=== PATIENT | female | born 1945 | race Caucasian/White ===

== ENCOUNTER → 2018-03-14 | Outpatient (CLI) | payer MEDICARE, OTHER ==
[~2018-03-14] MED LIST: ADULT LOW DOSE81 MG PO; ALBUTEROL INH IH; ANASPAZ0.125 MG SL; ASPIRIN81 M2 PO; AVELOX 400 MG400 MG PO; CALCIUM OYSTER500 MG PO; CLONAZEPAM 0.50.5 M1 PO; CRESTOR10 MG PO; DALIRESP500 MCG PO; DOXYCYCLINE 10100 MG; DUONEB 2.5-0.5 M3 ML; DUONEB 2.5-0.5 M3 ML INH; GLUCOPHAGE500 MG PO; LEVAQUIN 500 M500 M4 PO; LEXAPRO 10 MG T10 MG PO; LISINOPRIL5 MG PO; MUCINEX600 MG PO; NICOTINE TRANSD14 M1 TOP; OMEGA-31000 MG PO; OXYBUTYNIN 5 MG5 M1; PHENERGAN-CODE120 ML; PREDNISONE 10 M10 M1 PO; PREDNISONE 10 M10 MG PO; PREDNISONE 20 M20 M1 PO; PROBIOTIC1 EAC1 PO; PROVENTIL INH; PULMICORT0.5 MG/22 INH; SINGULAIR 10 MG10 M1 PO; SYMBICORT80 MCG/4.1 INH; VITAMIN B-12500 MCG PO; VITAMIN D1000 UNI1 PO; WELCHOL PO; WELLBUTRIN XL300 M1 PO; ZOCOR20 MG PO; [UNRECOGNIZED DRUG - OTHER]
== END ==
LOC: M.ULTRA 10:50
DX: I65.23 Occlusion and stenosis of bilateral carotid arteries (principal); R42 Dizziness and giddiness; I10 Essential (primary) hypertension; E11.8 Type 2 diabetes mellitus with unspecified complications; E11.65 Type 2 diabetes mellitus with hyperglycemia; J43.1 Panlobular emphysema; I25.811 Atherosclerosis of native coronary artery of transplanted heart without angina pectoris

== ENCOUNTER → 2018-10-23 | Outpatient (CLI) | payer MEDICARE, OTHER | LOC: M.RAD 17:33 | DX: E11.9 Type 2 diabetes mellitus without complications (principal); J43.1 Panlobular emphysema ==

== ENCOUNTER 2019-02-26 15:32 | Inpatient (IN) | payer MEDICARE, OTHER ==
[~2019-02-26] VITALS: Ht 157.5 cm; Wt 49.9 kg
--- NOTE | ~2019-02-26 | CON ---
[address] [address] CONSULTATION Name: GENNAVICTOR HUGO K Room: [address] IN M.R.#: [id number] Admission: 02/26/19 Attend Phys: Krista Christianson Discharge: Date of : 49 Report #: [id number] THIS REPORT FOR: //name// CC: Selvin Bull DICTATED BY: Kandis COREY DATE OF SERVICE: 02/27/2019 Please note at the time of this dictation, the patient was seen and physically examined by myself. REASON FOR CONSULTATION: Possible post-polypectomy bleed. HISTORY OF PRESENT ILLNESS: This is a 73-year-old female who presented to the Emergency Room after undergoing a colonoscopy with Dr. Vizcarra on 02/25/2019. She had five polyps removed, two of which were saline-assisted polypectomies at the cecum. The patient, after the procedure, developed some right-sided abdominal discomfort and then prior to arrival to the Emergency Room, she noted passing of several blood clots with two more episodes of a little bit of bleeding. She has had no further episodes of bleeding since she has been here or any further bowel movements. Hemoglobin on admission was 13. The patient is not complaining of any abdominal discomfort at this time. No fever or chills. She is hungry, tolerated her diet and will get her diet started. ALLERGIES: SULFA AND INFLUENZA. MEDICATIONS FROM HOME: Clonazepam, Zestril, vitamin D, Glucophage and Symbicort. PAST MEDICAL HISTORY: She has had COPD, diabetes, hypertension. She has had a history of high-grade celiac stenosis that has been noted as well. PAST SURGICAL HISTORY: Neck surgery, cholecystectomy, hysterectomy, nodules removed from her vocal cords and a and a recent colonoscopy with polyps removed. FAMILY HISTORY: Noncontributory. SOCIAL HISTORY: She does drink alcohol on special occasions. She continues to smoke one pack per day and denies any illegal drug use. REVIEW OF SYSTEMS: Twelve-point review of systems is essentially negative except what is [place] [address] CONSULTATION Name: VICTOR HUGO VAIL Room: [address] IN [facility]#: [id number] Admission: 02/26/19 Attend Phys: Krista Christianson Discharge: Date of : 49 Report #: [id number] PHYSICAL EXAMINATION: VITAL SIGNS: Temperature 36.8, pulse 71, respirations 20, blood pressure 133/50. HEART: Regular rate and rhythm. LUNGS: Clear. ABDOMEN: Soft, positive bowel sounds in all four quadrants with no masses or tenderness noted. LABORATORY DATA: Now, hemoglobin is 11.2. White count on admission was 12.1. She is now down to 8.9, platelets 246. GFR is 62. CT scan at the time of admission showed some inflammatory changes around the cecum and did note some large plaquing at the celiac and SMA and ZAHRAA origins, which has contributed to the patient's history. IMPRESSION: 1. Gastrointestinal bleed, post-polypectomy bleed, stable. 2. Some leukocytosis, it is resolved. 3. Abdominal pain, resolved. PLAN: 1. Advance her diet to a low-residue diet. 2. Check her hemoglobin at 13:00 to ensure stability. 3. Continue antibiotics. 4. If hemoglobin remains stable and no further bleeding is noted, okay from GI for the patient to go home. Thank you for allowing us to participate in this patient's care. Please do not hesitate to call with any questions in regard to this consult. By: [id number] 1850Lorenza Sosa MD /nt
[2019-02-26 15:41] VITALS: BP 145/58
[2019-02-26 16:03] LABS: ABSOLUTE BASOPHILS 0.1 thou/uL (0.0-0.2); ABSOLUTE EOSINOPHILS 0.1 thou/uL (0.0-0.7); ABSOLUTE LYMPHOCYTES 2.4 thou/uL (0.8-5.3); ABSOLUTE MONOCYTES 0.9 thou/uL (0.0-1.2); ABSOLUTE NEUTROPHILS 8.6 thou/uL (1.6-8.1); BASOPHILS 0.6 %; EOSINOPHILS 0.6 %; HEMATOCRIT 38.8 % (37.0-47.0); HEMOGLOBIN 13.1 gm/dL (12.0-15.0); LYMPHOCYTES 20.1 %; MCHC 33.8 g/dL (28.0-37.0); MCV 88.7 fL (80.0-100.0); MONOCYTES 7.6 %; MPV 8.1 fl. (7.2-11.1); NUCLEATED RBCS 0 /100WBC; PLATELET COUNT* 296 thou/uL (150-400); POLYS 71.1 %; RBC 4.37 mil/uL (4.20-5.00); RDW-CV 13.4 % (10.5-14.5); WBC 12.1 thou/uL (4.0-11.0)
[2019-02-26 16:10] LABS: ANION GAP 7 mmol/L (7-16); BUN 9 mg/dL (7-18); CALCIUM 9.8 mg/dL (8.5-10.1); CHLORIDE 100 mmol/L (98-107); CO2 31 mmol/L (21-32); CREATININE 0.9 mg/dL (0.6-1.3); GLUCOSE 121 mg/dL (70-99); POTASSIUM 3.4 mmol/L (3.5-5.1); SODIUM 138 mmol/L (136-145)
[2019-02-26 16:22] LABS: ALBUMIN 3.9 g/dL (3.4-5.0); ALKALINE PHOSPHATASE 77 U/L (46-116); LIPASE 120 U/L (73-393); SGOT 14 U/L (15-37); SGPT 15 U/L (30-65); TOTAL BILIRUBIN 0.6 mg/dL (<0.1-1.0); TOTAL PROTEIN 7.3 g/dL (6.4-8.2); TROPONIN-I LEVEL <0.06 ng/mL (<0.06)
[2019-02-26 20:30] VITALS: BP 122/45
[2019-02-26 21:05] VITALS: BP 133/50
--- NOTE | 2019-02-27 06:20 | NUR ---
PATIENT ARRIVED ON THE FLOOR FROM ER AT ABOUT 2014. PATIENT ADMISSION HISTORY AND ASSESSMENT WAS COMPLETED CHARTED. IV FLUIDS ARE INFUSING PER ORDER. PATIENT HAS HAD NO COMPLAINTS OF PAIN OR ANY MORE BLOODY STOOLS. WILL CONTINUE TO MONITOR.
[2019-02-27 09:07] LABS: ABSOLUTE BASOPHILS 0.1 thou/uL (0.0-0.2); ABSOLUTE EOSINOPHILS 0.2 thou/uL (0.0-0.7); ABSOLUTE LYMPHOCYTES 2.8 thou/uL (0.8-5.3); ABSOLUTE MONOCYTES 0.8 thou/uL (0.0-1.2); ABSOLUTE NEUTROPHILS 4.9 thou/uL (1.6-8.1); BASOPHILS 1.1 %; EOSINOPHILS 2.4 %; HEMATOCRIT 32.9 % (37.0-47.0); HEMOGLOBIN 11.2 gm/dL (12.0-15.0); LYMPHOCYTES 31.9 %; MCH 30.3 pg (26.0-34.0); MCHC 33.9 g/dL (28.0-37.0); MCV 89.4 fL (80.0-100.0); MPV 7.9 fl. (7.2-11.1); NUCLEATED RBCS 0 /100WBC; PLATELET COUNT* 246 thou/uL (150-400); POLYS 55.6 %; RBC 3.68 mil/uL (4.20-5.00); RDW-CV 13.3 % (10.5-14.5); WBC 8.9 thou/uL (4.0-11.0)
--- NOTE | 2019-02-27 11:10 | EKG ---
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
[2019-02-27 11:45] VITALS: BP 115/27; BP 86/45
[2019-02-27 13:55] VITALS: BP 100/25
[2019-02-27 15:32] VITALS: BP 101/29
--- NOTE | 2019-02-27 16:37 | NUR ---
PT.LIVES AT HOME WITH . NO USE OF DME OR HX OF HH. SHE IS INDEPENDENT. HOPES TO DC TOMORROW. NO DISCHARGE NEEDS IDENTIFIED.
[2019-02-27 17:05] VITALS: BP 118/24
[2019-02-27 17:06] VITALS: BP 134/40
--- NOTE | 2019-02-27 17:29 | NUR ---
PATIENT RESTING IN BED. PATIENT IS UP AD PREMA IN ROOM. PATIENT DENIES ANY BOWEL MOVEMENTS TODAY. PATIENT HAS GOOD APPETITE WITH NO COMPLAINTS OF NAUSEA OR PAIN. PATIENT BLOOD PRESSURE IS HYPOTENSIVE, SALINE BOLUS GIVEN ORDERED. PRESSURES HAVE IMPROVED DOCUMENTED. PATIENT DENIES ANY NEEDS AT THIS TIME. CALL LIGHT WITHIN REACH. WILL CONTINUE TO MONITOR.
[2019-02-27 20:45] VITALS: BP 124/47
[2019-02-28 05:09] LABS: HEMATOCRIT 30.5 % (37.0-47.0); HEMOGLOBIN 10.5 gm/dL (12.0-15.0); MCH 31.1 pg (26.0-34.0); MCHC 34.4 g/dL (28.0-37.0); MCV 90.4 fL (80.0-100.0); MPV 8.5 fl. (7.2-11.1); RBC 3.37 mil/uL (4.20-5.00); RDW-CV 13.6 % (10.5-14.5); WBC 8.4 thou/uL (4.0-11.0)
--- NOTE | 2019-02-28 05:13 | NUR ---
PT SLEPT MOST OF SHIFT. ASSESSMENT DOCUMENTED. MEDS GIVEN PER E-MAR. IV PATENT. NO REPORTS OF PAIN OR NAUSEA. PT REPORTS HAVING A BOWEL MOVEMENT WITH NO BLOOD. UNOBSERVED BY THIS NURSE. WILL CONTINUE WITH PLAN OF CARE.
[2019-02-28 05:16] LABS: CALCIUM 8.8 mg/dL (8.5-10.1); CREATININE 0.9 mg/dL (0.6-1.3); MAGNESIUM 1.5 mg/dL (1.8-2.4); POTASSIUM 4.5 mmol/L (3.5-5.1)
[2019-02-28 07:50] VITALS: BP 146/51
[2019-02-28] MEDS ORDERED: CIPRO500 MG PO (08:34)
[2019-02-28] MEDS ORDERED: FLAGYL375 MG PO (08:34)
[2019-02-28 10:18] VITALS: BP 146/51
--- NOTE | 2019-02-28 11:23 | NUR ---
PATIENT SITTING UP IN CHAIR ALL MORNING. UP AD PREMA WITH NO DIFFICULTY. IVF AND SCHED ABX INFUSED ORDERED. PATIENT TO DISCHARGE HOME. VERBALIZES UNDERSTANDING OF PAPERWORK, SCRIPTS CALLED INTO [facility] IN [place]. IV DC'D. PATIENT AMBULATED OUT WITH SPOUSE AND STAFF AND ALL BELONGINGS.
== END 2019-02-28 11:28 | disposition home or self-care (01) | DRG 920 ==
LOC: M.ERS 15:32 → M.ORTHSURG 17:53 → M.TBA-ER 17:53 → M.ORTHSURG 20:20
PROVIDERS: Family Medicine; Internal Medicine; ADMIT Internal Medicine
DX: K91.840 Postprocedural hemorrhage of a digestive system organ or structure following a digestive system procedure (principal); D62 Acute posthemorrhagic anemia; Y83.8 Other surgical procedures as the cause of abnormal reaction of the patient, or of later complication, without mention of misadventure at the time of the procedure; J44.9 Chronic obstructive pulmonary disease, unspecified; E11.9 Type 2 diabetes mellitus without complications; I10 Essential (primary) hypertension; K52.9 Noninfective gastroenteritis and colitis, unspecified; D72.829 Elevated white blood cell count, unspecified; F17.210 Nicotine dependence, cigarettes, uncomplicated; D64.9 Anemia, unspecified; Z79.899 Other long term (current) drug therapy; Z90.49 Acquired absence of other specified parts of digestive tract; Z90.710 Acquired absence of both cervix and uterus; Z88.2 Allergy status to sulfonamides; Z88.7 Allergy status to serum and vaccine